=== PATIENT | female | born 1955 | race Caucasian/White ===

== ENCOUNTER 2024-12-31 05:25 | Day surgery (SDC) | payer OTHER ==
[~2024-12-31 05:25] MED LIST: AMARYL 4MG; COZAAR50 MG PO; JANUMET 50-1,01 EACH PO; LANTUS SOL100 UNIT/1; MACROBID 100 M100 MG PO; METFORMIN HCL500 MG; OMEPRAZOLE10 MG; PEPCID40 MG PO; ROSUVASTATIN CAL5 MG PO; SIMVASTATIN20 MG; SYNTHROID50 MCG; ULTRACET PO
[2024-12-31] MEDS ORDERED: CEFAZOLIN SODIUM 1,000 MG VIAL ONE (07:37)
[2024-12-31] MEDS ORDERED: LIDOCAINE HCL 1%/EPINEPHRINE 20ML VIAL IJ ONE (07:58)
[2024-12-31] MEDS ORDERED: VANCOMYCIN HCL 1,000 MG VIAL ONE (08:01)
[2024-12-31] MEDS ORDERED: MACROBID 100 M100 MG PO (09:07)
[2024-12-31] MEDS ORDERED: ACETAMINOPHEN-1 EAC2 PO (09:09)
== END 2024-12-31 11:50 | disposition home or self-care (01) ==
LOC: CIR.AMB 05:25
PROVIDERS: ATTEND Obstetrics & Gynecology Gynecology
DX: N81.11 Cystocele, midline (principal); Z88.2 Allergy status to sulfonamides; Z88.6 Allergy status to analgesic agent